=== PATIENT | male | born 1975 | race African-American/Black ===

== ENCOUNTER 2018-06-12 11:02 | Emergency (ER) | payer OTHER ==
[~2018-06-12] VITALS: Ht 188 cm; Wt 86.2 kg
[2018-06-12] MEDS ORDERED: Mobic7.5 MG PO (11:54)
== END 2018-06-12 11:57 | disposition home or self-care (01) ==
LOC: ER 11:02
DX: S93.401A Sprain of unspecified ligament of right ankle, initial encounter (principal); F17.210 Nicotine dependence, cigarettes, uncomplicated; W10.9XXA Fall (on) (from) unspecified stairs and steps, initial encounter
CPT/HCPCS: 29515; 99283-25

== ENCOUNTER → 2021-10-19 | Outpatient (CLI) | payer OTHER ==
[~2021-10-19] MED LIST: IBUP600 PO; KETO10 PO; Mobic7.5 MG PO
== END | disposition home or self-care (01) ==
LOC: LAB 14:41 → LAB SHORT 14:41
DX: L02.511 Cutaneous abscess of right hand (principal)
CPT/HCPCS: 87070; 87147; 87205